=== PATIENT | female | born 1970 | race Hispanic/Latino ===

== ENCOUNTER 2017-08-05 12:51 | Emergency (ER) | payer OTHER, SELFPAY ==
[2017-08-05 14:43] LABS: Potassium 4.4 mEq/L (3.6-5.0)
[2017-08-05 14:49] LABS: Albumin 3.9 g/dL (3.2-5.5); Bilirubin Direct 0.1 mg/dL (0-0.2); Bilirubin Total 0.6 mg/dL (0.3-1.2); Magnesium 1.9 mg/dL (1.8-2.5); Protein, Total 7.5 g/dL (6.0-8.3)
[2017-08-05 14:51] LABS: Protime INR 1.04
[2017-08-05 14:53] LABS: CKMB Creatine Kinase MB 0.5 ng/ml (0.3-4.0)
[2017-08-05] MEDS ORDERED: ACETAMINOPHEN 325 MG TABLET ONE (14:57)
--- NOTE | 2017-08-05 15:35 | EKG ---
Test Date: 2017-08-05 Test Time: 13:51:43 Insulation Board Back Tender: VERENICE MEASUREMENT RESULTS: Intervals: Rate: 77 NC: 172 QRSD: 92 QT: 418 QTc: 473 [place]: P: 32 NC: 172 QRS: 1 T: 47 INTERPRETIVE STATEMENTS: Normal sinus rhythm cannot rule out Anterior infarct, age undetermined Abnormal ECG Compared to ECG 12/02/2012 16:05:05 questionable Myocardial infarct finding now present Electronically Signed On 08-05-17 15:34:51 CDT by Antwan Wilson
--- NOTE | 2017-08-05 15:41 | RAD REPORT ---
EXAM DESCRIPTION: RAD - Chest Single View - 08/05/2017 3:29 pm CLINICAL HISTORY: Cough, shortness of breath COMPARISON: November 2012 TECHNIQUE: AP portable chest image was obtained 1515 hours . FINDINGS: Lung volumes within normal limits. No peripheral mass or consolidation. Pneumonia is not s uspected. No mediastinal or hilar mass or lymphadenopathy. Heart size is upper normal. Central vasculature is increased slightly over the comparison and there i s an increase in the interstitial markings in the perihilar and medial lung base regions. Mild failur e/ volume overload is suspected. Trachea is midline. No measurable pleural effusion and no pneumothor ax. No gross bony abnormality seen. No acute aortic findings suspected. IMPRESSION: Mild CHF/volume overload pattern.
--- NOTE | 2017-08-05 15:48 | ER ---
Nurse's Notes [facility] Name: Edna Abreu Age: 46 yrs Sex: Female : 1970 Arrival Date: 08/05/2017 Time: 12:54 Bed 26 Private MD: Diagnosis: Unspecified combined systolic (congestive) and diastolic (congestive) heart failure;Other acute kidney failure-insufficency;Transplanted organ and tissue status, unspecified-renal , 2006 Presentation: 08/05 12:58 Presenting complaint: Patient states: SOB since Saturday. Respirations are tachypneic aj in triage. Transition of care: patient was not received from another setting of care. Onset of symptoms was August 03, 2017. Care prior to arrival: None. 12:58 Method Of Arrival: Wheelchair aj 12:58 Acuity: KAREN 2 aj Triage Assessment: 13:00 General: Appears distressed, obese, Behavior is calm, cooperative. Pain: Denies pain. aj Neuro: Level of Consciousness is awake, alert, obeys commands, Oriented to person, place, time, situation. Respiratory: Reports shortness of breath Airway is patent Respiratory effort is labored, Respiratory pattern is tachypnea Onset: The symptoms/episode began/occurred gradually, the patient has moderate shortness of breath. Derm: Skin is intact, is healthy with good turgor, Skin is pink, warm \T\ dry. normal. OFFICE RUNNER: 13:00 LMP N/A - Hysterectomy aj Historical: - Allergies: 13:00 Gary; aj - PMHx: 13:00 Diabetes - IDDM; Hypertension; aj - PSHx: 13:00 Kidney transplant; aj - Immunization history:: Adult Immunizations up to date. - Social history:: Smoking status: Patient/guardian denies using tobacco. - Family history:: not pertinent. Screenin:42 Abuse screen: Denies threats or abuse. Denies injuries from another. Nutritional kr2 screening: No deficits noted. Tuberculosis screening: No symptoms or risk factors identified. Fall Risk None identified. Assessment: 14:00 General: Appears in no apparent distress. comfortable, well groomed, well developed, kr2 well nourished, Behavior is calm, cooperative, appropriate for age. Pain: Denies pain. Neuro: Level of Consciousness is awake, alert, obeys commands, Oriented to person, place, time, situation, Appropriate for age. Cardiovascular: Capillary refill < 3 seconds in bilateral fingers Patient's skin is warm and dry. Pulses are palpable in right radial artery and left radial artery Rhythm is sinus rhythm. Respiratory: Airway is patent Respiratory effort is even, unlabored, Respiratory pattern is regular, symmetrical, Breath sounds with crackles in left posterior lower lobe and right posterior lower lobe the patient has mild shortness of breath Parent/caregiver reports the patient having shortness of breath on exertion. GI: Abdomen is flat, non-distended, Bowel sounds present X 4 quads. : Reports history of kidney transplant in 2007 at [facility]. EENT: Nares are clear bilaterally Oral mucosa is moist. Derm: Skin is intact, is healthy with good turgor, Skin is pink, warm \T\ dry. Musculoskeletal: Circulation, motion, and sensation intact. 14:00 Cardiovascular: Dialysis shunt: in the right upper arm. kr2 15:00 Reassessment: Patient appears in no apparent distress at this time. Patient and/or kr2 family updated on plan of care and expected duration. Pain level reassessed. Patient is alert, oriented x 3, equal unlabored respirations, skin warm/dry/pink. 16:00 Reassessment: Patient appears in no apparent distress at this time. Patient and/or kr2 family updated on plan of care and expected duration. Pain level reassessed. Patient is alert, oriented x 3, equal unlabored respirations, skin warm/dry/pink. Patient states feeling better. 17:00 Reassessment: Patient appears in no apparent distress at this time. Patient and/or kr2 family updated on plan of care and expected duration. Pain level reassessed. Patient is alert, oriented x 3, equal unlabored respirations, skin warm/dry/pink. assisted to restroom, shortness of breath noted upon exertion, recovers quickly with rest Patient denies pain at this time. 18:00 Reassessment: Patient appears in no apparent distress at this time. Patient and/or kr2 family updated on plan of care and expected duration. Pain level reassessed. Patient is alert, oriented x 3, equal unlabored respirations, skin warm/dry/pink. Patient denies pain at this time. Vital Signs: 13:00 BP 135 / 84; Pulse 90; Resp 30; Temp 98.4; Pulse Ox 88% on R/A; Weight 106.59 kg; aj Height 5 ft. 2 in. (157.48 cm); Pain 0/10; 13:30 BP 137 / 85; Pulse 79; Resp 22; Pulse Ox 97% on 3 lpm NC; dh3 14:16 BP 111 / 89; Pulse 79; Resp 14; Pulse Ox 96% on 3 lpm NC; dh3 15:27 BP 128 / 86; Pulse 72; Resp 16; Pulse Ox 96% on 3 lpm NC; kr2 16:30 BP 134 / 78; Pulse 80; Resp 20; Pulse Ox 99% on 3 lpm NC; kr2 18:12 BP 125 / 72; Pulse 78; Resp 16; Pulse Ox 99% on 3 lpm NC; kr2 13:00 Body Mass Index 42.98 (106.59 kg, 157.48 cm) ED Course: 12:54 Patient arrived in ED. mr 12:59 Triage completed. aj 13:00 Arm band placed on left wrist. Patient placed in an exam room. aj 13:13 Cl Ma MD is Attending Physician. [facility] 13:56 EKG done, by bench repair technician. reviewed by Cl Ma MD. at1 14:00 Patient has correct armband on for positive identification. Bed in low position. Call kr2 light in reach. Side rails up X2. bus monitor on. Pulse ox on. NIBP on. Door closed. Warm blanket given. Head of bed elevated. 14:03 Rita Wells, RN is Primary Nurse. kr2 14:15 Inserted saline lock: 22 gauge in left antecubital area, using aseptic technique. Blood kr2 collected. 14:35 First set of blood cultures drawn by venipuncture 23G to left hand by me. dh3 14:58 Second set of blood cultures drawn by venipuncture 23G to left hand by me. dh3 15:20 Note: PT STILL HAD BRA ON, NOT DRESSED PROPERLY FOR XRAY. mh1 15:24 X-ray completed. Portable x-ray completed in exam room. Patient tolerated procedure mh1 well. 15:50 Urine collected: clean catch specimen, clear. dh3 18:14 No provider procedures requiring assistance completed. Patient transferred, IV remains kr2 in place. Administered Medications: 15:16 Drug: Tylenol 650 mg Route: PO; kr2 15:56 Follow up: Response: No adverse reaction; Pain is decreased kr2 15:56 Drug: Lasix 20 mg Route: IVP; Site: left antecubital; kr2 16:53 Follow up: Response: No adverse reaction; increased urination noted kr2 Intake: Outcome: 15:47 ER care complete, transfer ordered by MD. cantrell 18:14 Transferred by ground EMS to [facility], Transfer form kr2 completed. Note: report called to MARK Hurst 18:14 Condition: stable 18:14 Instructed on the need for transfer, Demonstrated understanding of instructions. 18:16 Patient left the ED. kr2 Signatures: Olinda Bateman RN RN Cl London MD MD cha Rivera, Maria mr Fontana Patricia mh1 Olinda ford, field consultant EKG [facility] Bernadine Rosario 3 Rita Wells RN RN kr2 Corrections: (The following items were deleted from the chart) 14:47 14:00 : No signs and/or symptoms were reported regarding the genitourinary system. kr2kr2 15:27 14:45 Cardiovascular: Dialysis shunt: in the right upper arm, kr2 kr2 15:33 15:27 BP 128 / 86; Pulse 72bpm; Resp 16bpm; Pulse Ox 96% RA; kr2 kr2 18:15 18:14 Transferred by ground EMS to [facility], kr2 kr2
--- NOTE | 2017-08-05 15:48 | EDPHYS ---
Physician Documentation [facility] Name: Edna Abreu Age: 46 yrs Sex: Female : 1970 Arrival Date: 08/05/2017 Time: 12:54 Bed 26 Private MD: ED Physician Cl Ma HPI: 08/05 14:17 This 46 yrs old Female presents to ER via Wheelchair with complaints of óscar Breathing Difficulty. 14:17 The patient has shortness of breath with light activity, that woke him/her from sleep. óscar Onset: The symptoms/episode began/occurred 3 day(s) ago. Duration: The symptoms are continuous, and are steadily getting worse. The patient's shortness of breath has no apparent modifying factors. Associated signs and symptoms: The patient has no apparent associated signs or symptoms. Severity of symptoms: At their worst the symptoms were mild in the emergency department the symptoms are unchanged. The patient has not experienced similar symptoms in the past. 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 - Social history:: Smoking status: Patient/guardian denies using tobacco. - Family history:: not pertinent. ROS: 14:17 Constitutional: Negative for fever, chills, and weight loss, Eyes: Negative for injury, óscar pain, redness, and discharge, ENT: Negative for injury, pain, and discharge, Neck: Negative for injury, pain, and swelling, Cardiovascular: Negative for chest pain, palpitations, and edema, Abdomen/GI: Negative for abdominal pain, nausea, vomiting, diarrhea, and constipation, Back: Negative for injury and pain, : Negative for injury, bleeding, discharge, and swelling, MS/Extremity: Negative for injury and deformity, Skin: Negative for injury, rash, and discoloration, Neuro: Negative for headache, weakness, numbness, tingling, and seizure, Psych: Negative for depression, anxiety, suicide ideation, homicidal ideation, and hallucinations, Allergy/Immunology: Negative for hives, rash, and allergies, Endocrine: Negative for neck swelling, polydipsia, polyuria, polyphagia, and marked weight changes, Hematologic/Lymphatic: Negative for swollen nodes, abnormal bleeding, and unusual bruising. 14:17 Respiratory: Positive for cough, shortness of breath, at rest. Exam: 14:17 Constitutional: This is a well developed, well nourished patient who is awake, alert, óscar and in no acute distress. Head/Face: Normocephalic, atraumatic. Eyes: Pupils equal round and reactive to light, extra-ocular motions intact. Lids and lashes normal. Conjunctiva and sclera are non-icteric and not injected. Cornea within normal limits. Periorbital areas with no swelling, redness, or edema. ENT: Nares patent. No nasal discharge, no septal abnormalities noted. Tympanic membranes are normal and external auditory canals are clear. Oropharynx with no redness, swelling, or masses, exudates, or evidence of obstruction, uvula midline. Mucous membranes moist. Neck: Trachea midline, no thyromegaly or masses palpated, and no cervical lymphadenopathy. Supple, full range of motion without nuchal rigidity, or vertebral point tenderness. No Meningismus. Chest/axilla: Normal chest wall appearance and motion. Nontender with no deformity. No lesions are appreciated. Cardiovascular: Regular rate and rhythm with a normal S1 and S2. No gallops, murmurs, or rubs. Normal PMI, no JVD. No pulse deficits. Respiratory: Lungs have equal breath sounds bilaterally, clear to auscultation and percussion. No rales, rhonchi or wheezes noted. No increased work of breathing, no retractions or nasal flaring. Abdomen/GI: Soft, non-tender, with normal bowel sounds. No distension or tympany. No guarding or rebound. No evidence of tenderness throughout. Back: No spinal tenderness. No costovertebral tenderness. Full range of motion. Skin: Warm, dry with normal turgor. Normal color with no rashes, no lesions, and no evidence of cellulitis. MS/ Extremity: Pulses equal, no cyanosis. Neurovascular intact. Full, normal range of motion. Neuro: Awake and alert, GCS 15, oriented to person, place, time, and situation. Cranial nerves II-XII grossly intact. Motor strength 5/5 in all extremities. Sensory grossly intact. Cerebellar exam normal. Normal gait. Psych: Awake, alert, with orientation to person, place and time. Behavior, mood, and affect are within normal limits. 14:17 Musculoskeletal/extremity: DVT Exam: No signs of deep vein thrombosis. no pain, no swelling, no tenderness, negative Homans' sign noted on exam, no appreciated bluish discoloration, no erythema, no increased warmth. 16:38 Musculoskeletal/extremity: ROM: no acute changes, intact in all extremities, full óscar active range of motion, full passive range of motion, Circulation is intact in all extremities. Sensation intact. Compartment Syndrome exam of affected extremity: is normal. no pain, no numbness, no tingling, no sensation deficit, no palor, no weak pulses. Vital Signs: 13:00 BP 135 / 84; Pulse 90; Resp 30; Temp 98.4; Pulse Ox 88% on R/A; Weight 106.59 kg; aj Height 5 ft. 2 in. (157.48 cm); Pain 0/10; 13:30 BP 137 / 85; Pulse 79; Resp 22; Pulse Ox 97% on 3 lpm NC; dh3 14:16 BP 111 / 89; Pulse 79; Resp 14; Pulse Ox 96% on 3 lpm NC; dh3 15:27 BP 128 / 86; Pulse 72; Resp 16; Pulse Ox 96% on 3 lpm NC; kr2 16:30 BP 134 / 78; Pulse 80; Resp 20; Pulse Ox 99% on 3 lpm NC; kr2 18:12 BP 125 / 72; Pulse 78; Resp 16; Pulse Ox 99% on 3 lpm NC; kr2 13:00 Body Mass Index 42.98 (106.59 kg, 157.48 cm) aj MDM: 13:13 Patient medically screened. [facility] 14:18 Data reviewed: vital signs, nurses notes, lab test result(s), EKG, radiologic studies, óscar plain films. 08/05 13:38 Order name: Basic Metabolic Panel [facility] 08/05 13:38 Order name: BNP [facility] 08/05 13:38 Order name: CBC with Diff [facility] 08/05 13:38 Order name: Ckmb [facility] 08/05 13:38 Order name: CPK [facility] 08/05 13:38 Order name: LFT's [facility] 08/05 13:38 Order name: Magnesium [facility] 08/05 13:38 Order name: PT-INR [facility] 08/05 13:38 Order name: Ptt, Activated [facility] 08/05 13:38 Order name: Troponin (emerg Dept Use Only) [facility] 08/05 14:17 Order name: Blood Culture Adult (2) [facility] 08/05 14:43 Order name: Basic Metabolic Panel; Complete Time: 14:54 [facility] 08/05 14:49 Order name: Troponin (Emerg Dept Use Only); Complete Time: 14:54 [facility] 08/05 14:50 Order name: Liver (Hepatic) Function; Complete Time: 14:54 [facility] 08/05 13:38 Order name: XRAY Chest (1 view) [facility] 08/05 13:38 Order name: EKG; Complete Time: 13:39 [facility] 08/05 13:38 Order name: Cardiac monitoring; Complete Time: 14:22 [facility] 08/05 13:38 Order name: EKG - Nurse/Tech; Complete Time: 14:22 [facility] 08/05 14:50 Order name: Creatine Phosphokinase; Complete Time: 14:54 [facility] 08/05 14:50 Order name: Magnesium; Complete Time: 14:54 [facility] 08/05 14:53 Order name: CKMB Creatine Kinase MB; Complete Time: 14:54 [facility] 08/05 14:54 Order name: BNP B-Type Natriuretic Peptide; Complete Time: 14:54 [facility] 08/05 15:13 Order name: Protime (+INR); Complete Time: 15:32 [facility] 08/05 15:13 Order name: PTT, Activated Partial Thromb; Complete Time: 15:32 [facility] 08/05 15:41 Order name: RAD; Complete Time: 15:44 [facility] 08/05 16:08 Order name: Urine Dipstick--Ancillary (enter results) 08/05 17:03 Order name: CBC with Automated Diff [facility] 08/05 17:11 Order name: Urine Dipstick-Ancillary [facility] 08/05 13:38 Order name: IV Saline Lock; Complete Time: 14:22 [facility] 08/05 13:38 Order name: Labs collected and sent; Complete Time: 14:22 [facility] 08/05 13:38 Order name: O2 Per Protocol; Complete Time: 14:23 [facility] 08/05 13:38 Order name: O2 Sat Monitoring; Complete Time: 14:23 [facility] 08/05 13:38 Order name: Urine Dipstick-Ancillary (obtain specimen); Complete Time: 15:50 [facility] 08/05 16:03 Order name: Labs - recollect needed; Complete Time: 16:53 bd Administered Medications: 15:16 Drug: Tylenol 650 mg Route: PO; kr2 15:56 Follow up: Response: No adverse reaction; Pain is decreased kr2 15:56 Drug: Lasix 20 mg Route: IVP; Site: left antecubital; kr2 16:53 Follow up: Response: No adverse reaction; increased urination noted kr2 Disposition: 08/05/17 15:[address] [facility]. Diagnosis are Unspecified combined systolic (congestive) and diastolic (congestive) heart failure, Other acute kidney failure - insufficency, Transplanted organ and tissue status, unspecified - renal , 2006. - Reason for transfer: Higher level of care. - Accepting physician is to [facility]. - Condition is Fair. - Problem is new. - Symptoms have improved. Signatures: Dispatcher [employer] EDDelaney Walls Amanda, RN RN aj Anderson, Corey, MD MD cha Reaves, Karey RN RN kr2
[2017-08-05] MEDS ORDERED: FUROSEMIDE 20 MG/ 2ML VIAL ONE (16:11)
[2017-08-05 17:01] LABS: Absolute Lymphocytes (CBC) 0.8 K/uL (0.7-4.9); Absolute Monocytes 0.7 K/uL (0.1-1.3); Absolute Neutrophil 6.6 K/uL (1.8-8.0); Basophils % 0.5 % (0-1.3); Eosinophils % 1.2 % (0-4.4); Hematocrit 35.6 % (36.0-45.0); Lymphocytes % 9.6 % (15.3-44.8); MCH 23.3 pg (27.0-35.0); MCV 76.6 fL (80-100); MPV 8.5 fL (7.6-11.3); Monocytes % 8.7 % (3.3-12.3); RBC Red Blood Cell Count 4.64 M/uL (3.86-4.86)
[2017-08-05 17:11] LABS: Urine Blood NEGATIVE (NEG); Urine Glucose NEGATIVE (NEG); Urine Protein 2+ (NEG); Urine pH 5.5 (5.0-7.0)
== END 2017-08-05 18:16 | disposition short-term general hospital (02) ==
LOC: ER 12:51
DX: I50.40 Unspecified combined systolic (congestive) and diastolic (congestive) heart failure (principal); N17.8 Other acute kidney failure; Z94.0 Kidney transplant status; I10 Essential (primary) hypertension; Z88.6 Allergy status to analgesic agent
CPT/HCPCS: 36415; 71045; 80048; 80076; 81003; 82550; 82553; 83735; 83880; 84484; 85025; 85610; 85730; 87040; 93005; 96374; 99285; J1940